=== PATIENT | female | born 1955 | race Caucasian/White ===

== ENCOUNTER 2017-09-25 07:28 | Day surgery (SDC) | payer BC ==
[~2017-09-25] VITALS: Ht 170.2 cm; Wt 86.1 kg
[~2017-09-25 07:28] MED LIST: AMARYL2 MG PO; ASPIR 8181 M1 PO; CRESTOR20 MG PO; CYANOCOBALAM1000 MCG PO; IRON325 M1 PO; JARDIANCE10 MG PO; LOPRESSOR25 MG PO; METFORMIN HCL850 MG PO; PLAVIX75 MG PO; VICTOZA0.6 MG/0.1 SC; VITAMIN D31000 UNIT PO; ZESTRIL30 MG PO
[2017-09-25 07:53] VITALS: BP 110/56
[2017-09-25 10:41] VITALS: BP 109/72
[2017-09-25 11:46] VITALS: BP 110/60
== END 2017-09-25 11:50 | disposition home or self-care (01) ==
LOC: SDC 07:28
PROVIDERS: Ophthalmology
DX: H35.371 Puckering of macula, right eye (principal); E11.311 Type 2 diabetes mellitus with unspecified diabetic retinopathy with macular edema; Z79.4 Long term (current) use of insulin; E11.22 Type 2 diabetes mellitus with diabetic chronic kidney disease; N18.3 Chronic kidney disease, stage 3 (moderate); I25.10 Atherosclerotic heart disease of native coronary artery without angina pectoris; D64.9 Anemia, unspecified; Z79.82 Long term (current) use of aspirin; E78.5 Hyperlipidemia, unspecified; E53.8 Deficiency of other specified B group vitamins
CPT/HCPCS: 82948; J0690; J0713; J1100; J2250; J2795; J3300